=== PATIENT | female | born 1955 | race Caucasian/White ===

== ENCOUNTER 2020-09-06 08:51 | Emergency (ER) | payer OTHER ==
[2020-09-06 10:08] LABS: BILIRUBIN NEGATIVE (NEGATIVE); BLOOD 3+ Ery/uL (NEGATIVE); CLARITY CLEAR (CLEAR); COLOR YELLOW (YELLOW); GLUCOSE (U) NORMAL (NORMAL); LEUKOCYTES TRACE Leu/uL (NEGATIVE); NITRITE POSITIVE (NEGATIVE); PROTEIN NEGATIVE (NEGATIVE); SPECIFIC GRAVITY 1.015 (1.001-1.030); UROBILINOGEN 0.2 mg/dL (0.2-1.0); pH 5.5 (5.0-9.0)
[2020-09-06 10:08] LABS: BASOPHIL 0.2 % (0-2); EOSINOPHIL 0 % (0-5); HCT 44.7 % (37.0-47.0); HGB 15.5 g/dl (12.5-16.0); LYMPHOCYTE 2.8 % (15-48); MCH 29.1 pg (25.0-31.0); MCHC 34.7 g/dL (32.0-36.0); MONOCYTE 1.8 % (0-12); MPV 9.9 fL (6.0-9.5); NRBC 0; PLT 185 K/uL (150-400); RBC 5.32 M/uL (4.20-5.40); RDW 13.6 % (11.5-14.0)
[2020-09-06 10:09] LABS: NEUTROPHIL 94.4 % (41-80)
[2020-09-06 10:26] LABS: INR 1.08 (0.9-1.2); PROTHROMBIN TIME 13.3 SECONDS (11.4-13.6); PTT 32.2 SECONDS (22.2-34.7)
[2020-09-06 10:30] LABS: BACTERIA TRACE; MUCOUS TRACE; SQUAMOUS EPITHELIAL CELLS RARE
[2020-09-06 10:37] LABS: ALBUMIN 3.4 g/dL (3.4-5.0); BILIRUBIN - TOTAL 0.9 mg/dL (0.2-1.0); BUN/CREAT RATIO (CALC) 15.7 RATIO; C-REACTIVE PROTEIN 3.3 mg/dL (<=0.90); CREATININE 1.08 mg/dL (0.51-0.95); GLOBULIN (CALCULATION) 3.3 g/dL; MAGNESIUM 1.1 mg/dL (1.8-2.4); POTASSIUM 3.2 mmol/L (3.5-5.1); PRO-BNP 725 pg/mL (<125); TOTAL PROTEIN 6.7 g/dL (6.4-8.2)
[2020-09-06 10:51] LABS: LACTIC ACID 2.9 mmol/L (0.4-1.9)
== END 2020-09-06 14:53 | disposition other institution (70) ==
LOC: FER 08:51
PROVIDERS: Emergency Medicine
DX: N13.6 Pyonephrosis (principal); R65.10 Systemic inflammatory response syndrome (SIRS) of non-infectious origin without acute organ dysfunction; I10 Essential (primary) hypertension; R00.0 Tachycardia, unspecified; Z88.1 Allergy status to other antibiotic agents
CPT/HCPCS: 36415; 71260; 80053; 81001; 82728; 83605; 83615; 83690; 83735; 83880; 84145; 84443; 84484; 85025; 85610; 85730; 86140; 87040; 87076; 87077; 87088; 87186; 93005; J0696; J1170; J1885; J2405; J7030; Q9967